=== PATIENT | male | born 1970 | race Caucasian/White ===

== ENCOUNTER 2017-05-17 10:26 | Inpatient (IN) | payer OTHER ==
[~2017-05-17] VITALS: Ht 182.9 cm; Wt 103.9 kg
[2017-05-17 12:14] VITALS: BP 143/91
[2017-05-17] MEDS ORDERED: ACETAMINOPHEN 325 MG TABLET. PO PRN ×2 (13:00→13:45)
[2017-05-17] MEDS ORDERED: IV RINGERS SOLUTION,LACTATED 1,000 ML BAG. IV PRN (13:00)
[2017-05-17] MEDS ORDERED: ACET325T9 PO (13:03)
[2017-05-17] MEDS ORDERED: RING10003 IV (13:03)
[2017-05-17] MEDS ORDERED: ONDA2VIA3 IV (13:12)
[2017-05-17] MEDS ORDERED: PANT40VI IV (13:12)
[2017-05-17] MEDS ORDERED: NITR0.4T22 SL (13:12)
[2017-05-17] MEDS ORDERED: fentaNYL PF VIAL 100 MCG/2 ML VIAL IV PRN (13:15)
[2017-05-17 13:24] VITALS: BP 143/91
[2017-05-17] MEDS ORDERED: NICO2GUM42 BC (13:28)
[2017-05-17] MEDS ORDERED: NICO1PAT21 TD (13:28)
[2017-05-17] MEDS ORDERED: NICOTINE POLACRILEX 2MG GUM PACKAGE of 12. BC PRN (13:30)
[2017-05-17] MEDS ORDERED: oxyCODONE IR 5 MG TABLET PO PRN (13:45)
[2017-05-17] MEDS ORDERED: CALCIUM CARBONATE 500 MG TAB.CHEW PO PRN (13:45)
[2017-05-17] MEDS ORDERED: PROCHLORPERAZINE 10 MG/2 ML VIAL. IV PRN (13:45)
[2017-05-17] MEDS ORDERED: PROCHLORPERAZINE 25 MG SUPP.RECT. PR PRN (13:45)
[2017-05-17] MEDS ORDERED: ZOLPIDEM 5 MG TABLET. PO PRN (13:45)
[2017-05-17] MEDS ORDERED: MAG HYDROX/ALUMINUM HYD/SIMETH 30 ML ORAL.SUSP PO PRN (13:45)
--- NOTE | 2017-05-17 14:00 | PDOC1 ---
History and Physical Date of Admission Date of Admission DATE: 05/17/17 TIME: 13:55 Identification/Chief Complaint Chief Complaint abd pain Problems: Source Source: Caregiver, Chart review, Patient History of Present Illness History of Present Illness 46 y.o male with no cardiac hx, went to [facility] bec of abd pain started 1 week ago, epigastric then concentrated at RUQ area, associated some emesis, no fevers. Went to [facility], initially was thought to be having CP, got GI cocktail etc, CXR neg, CT shows cholelithiasis, Admitted, NOw sleeping, post IV fentanyl etc, FAmily at bedside, aware of plan, PLans of sx lisseth RECoccered alcoholic, still smokes, depression and GERD are other past medical. Otherwise, heart is healthy, NOt on any blood thinners Past Medical History GI: GERD Psych: Depression Past Surgical History Past Surgical History: Other (Left hip sx distant past) Family History Family History: Hypertension Social History Smoke: <1 pack per day ALCOHOL: other (recoeverd alcoholic) Drugs: None Current Medications Current Medications Current Medications Acetaminophen (Tylenol) 650 mg PRN Q6HRS PRN PO headache; Start 05/17/17 at 13: 00 Ringer's Solution (Iv Lactated Ringers) 125 ml CONT PRN IV .; Start 05/17/17 at 13:00 Morphine Sulfate 2 mg PRN Q2HR PRN IV PAIN; Start 05/17/17 at 13:15 Fentanyl Citrate (Fentanyl 2ml Vial) 50 mcg PRN Q2HR PRN IV PAIN; Start at 13:15 Nicotine Polacrilex (Nicorette Gum) 1 each PRN Q1HR PRN BC SMOKING CESSATION; Start 05/17/17 at 13:30 Nicotine (Nicoderm Cq 21mg) 1 patch DAILY TD ; Start 05/17/17 at 14:00 Sodium Chloride 1,000 ml @ 100 mls/hr Q10H IV ; Start 05/17/17 at 14:00 Prochlorperazine Edisylate (Compazine) 10 mg PRN Q6HRS PRN IV NAUSEA/VOMITING; Start 05/17/17 at 13:45 Prochlorperazine (Compazine) 25 mg PRN Q12HR PRN [place] NAUSEA/VOMITING; Start 05/17/17 at 13:45 Al Hydroxide/Mg Hydroxide (Mylanta Plus Xs) 30 ml PRN Q3HRS PRN PO HEARTBURN / GAS; Start 05/17/17 at 13:45 Calcium Carbonate/ Glycine (Tums) 500 mg PRN Q3HRS PRN PO UPSET STOMACH; Start 05/17/17 at 13:45 Zolpidem Tartrate (Ambien) 5 mg PRN QHS PRN PO INSOMNIA, MAY REPEAT IN 1HR; Start 05/17/17 at 13:45 Oxycodone HCl (Roxicodone) 5 mg PRN Q3HRS PRN PO BREAKTHROUGH PAIN; Start 05/17 at 13:45 Acetaminophen (Tylenol) 650 mg PRN Q6HRS PRN PO Headaches, Temp > 101.5F; Start 05/17/17 at 13:45; Stop 05/17/17 at 13:48; Status DC Active Scripts Active Reported Nicotine Gum (Nicotine Polacrilex) 2 Mg Gum 2 Mg BC NICODERM CQ 21mg (Nicotine) 1 Each Patch.td24 1 Patch TD DAILY Protonix Iv (Pantoprazole Sodium) 40 Mg Vial 40 Mg IV DAILYAC Zofran (Ondansetron Hcl) 2 Mg/1 Ml Vial 2 Mg IV NITROGLYCERIN SubLingual (Nitroglycerin) 0.4 Mg Tab.subl 0.4 Mg SL PRN Q5MIN PRN Lactated Ringers (Ringers Solution,Lactated) 1,000 Ml Iv.soln 1,000 Ml IV Tylenol (Acetaminophen) 325 Mg Tablet 650 Mg PO Allergies Allergies: Coded Allergies: No Known Drug Allergies (Unverified , 05/17/17) ROS Review of System sleeping Physical Exam General: Alert, Oriented X3, Cooperative, No acute distress HEENT: PERRLA Lungs: Clear to auscultation, Normal air movement Heart: S1S2, RRR, no thrills, no rubs, no gallops Cardiovascular: S1, S2 Abdomen: Soft, Other (no guarding mild to mod tendereness on exam) Rectal Exam: not examined PELVIC: Nml ext genitalia Extremities: No clubbing, No cyanosis, No edema, Normal pulses, No tenderness/ swelling Skin: No rashes, No breakdown, No significant lesion Neuro: Normal gait, Normal speech, Strength at 5/5 X4 ext, Normal tone, Sensation intact, Cranial nerves 3-12 NL, Reflexes 2+ Psych/Mental Status: Mental status NL, Mood NL Vitals Vitals Vital Signs Date Time Temp Pulse Resp B/P (MAP) Pulse Ox O2 Delivery O2 Flow Rate FiO2 05/17/17 13:24 98.1 62 143/91 (108) 97 98.1 05/17/17 12:14 20 Room Air VTE Prophylaxis Ordered VTE Prophylaxis Devices: Yes VTE Pharmacological Prophylaxi: Yes Assessment/Plan Assessment/Plan 1. SYmptomatic cholelithiasis 2. Recovered alcoholic 3. SMoker 4. GERD, Depression NOS - chronci stable Plan: Admit, liquid diet tonight NPO post MN IVF while nPO pain control GS consult - aware Nicotine prn Dw and RN CAITLYN Vazquez MD May 17, 2017 14:00
[2017-05-17] MEDS: MORPHINE SULFATE 4 MG/ML DISP.SYRIN. IV PRN ×2 (14:06→21:56)
[2017-05-17] MEDS: NICOTINE 21MG PATCH. TD SCH (14:07)
[2017-05-17 15:15] VITALS: BP_SYST 113; BP_SYST 134; BP_DIAS 76; BP_DIAS 91
[2017-05-17] MEDS: IV 1/2 NORMAL SALINE 1,000 ML IV SCH (18:42)
[2017-05-17 19:55] VITALS: BP 143/88
[2017-05-17 23:29] VITALS: BP 114/67
[2017-05-18] VITALS (13 sets, daily range): BP systolic 116–133; BP diastolic 60–85
[2017-05-18] MEDS: IV 1/2 NORMAL SALINE 1,000 ML IV SCH ×3 (06:06→20:00)
[2017-05-18 06:09] LABS: BASO % 0 % (0-3); EOS % 1 % (0-3); HEMATOCRIT 43.9 % (39.0-53.0); HEMOGLOBIN 15.3 g/dL (13.0-17.5); LYMPH # 1.6 x10^3/uL (1.0-4.8); LYMPH % 21 % (24-48); MEAN CORPUSCULAR HEMOGLOBIN 30 pg (25-35); MEAN CORPUSCULAR HGB CONC 35 g/dL (31-37); MEAN CORPUSCULAR VOLUME 86 fL (79-100); MONO % 7 % (0-9); NEUT % 70 % (31-73); PLATELET COUNT 179 x10^3/uL (140-400); RED BLOOD COUNT 5.12 x10^6/uL (4.30-5.70); RED CELL DISTRIBUTION WIDTH 13.8 % (11.5-14.5); WHITE BLOOD COUNT 7.6 x10^3/uL (4.0-11.0)
[2017-05-18 06:24] LABS: INR 1.1 (0.8-1.1); PROTHROMBIN TIME PATIENT 13.4 SEC (11.7-14.0)
[2017-05-18 06:35] LABS: ALBUMIN 3.5 g/dL (3.4-5.0); ALBUMIN/GLOBULIN RATIO 1.1 (1.0-1.7); CREATININE 0.8 mg/dL (0.7-1.3); TOTAL BILIRUBIN 0.8 mg/dL (0.2-1.0); TOTAL PROTEIN 6.7 g/dL (6.4-8.2)
[2017-05-18] MEDS ORDERED: ONDANSETRON PF 4 MG/2 ML VIAL. IV PRN ×2 (07:00→14:00)
[2017-05-18] MEDS ORDERED: fentaNYL PF VIAL 100 MCG/2 ML VIAL IV PRN ×2 (07:00)
[2017-05-18] MEDS ORDERED: HYDROmorphone 2 MG/ML VIAL IV PRN (07:00)
[2017-05-18] MEDS ORDERED: MORPHINE SULFATE 4 MG/ML DISP.SYRIN. IV PRN ×2 (07:00→14:15)
[2017-05-18] MEDS ORDERED: IV RINGERS,LACTATED 1000ML 1,000 ML IV SCH (07:00)
[2017-05-18] MEDS ORDERED: LIDOCAINE 1% PF 2 ML VIAL. ID PRN (07:00)
[2017-05-18] MEDS ORDERED: PROCHLORPERAZINE 10 MG/2 ML VIAL. IV PRN (07:00)
[2017-05-18] MEDS ORDERED: IOHEXOL 300 MG/ML 50 ML VIAL. ONE (07:44)
[2017-05-18] MEDS ORDERED: SURGICEL HEMOSTAT 4X8 EACH. ONE (07:44)
[2017-05-18] MEDS ORDERED: BUPIVACAINE-EPI 0.25%-1:200000 MPF 30 ML VIAL. ONE (07:45)
[2017-05-18] MEDS: NICOTINE 21MG PATCH. TD SCH (09:26)
--- NOTE | 2017-05-18 11:40 | PDOC2 ---
CONSULT Date of Consult Date of Consult DATE: 05/18/17 TIME: 11:37 Reason for Consult Reason for Consult: Abd pain with gallstones Referring Physician Referring Physician: Nubia Identification/Chief Complaint Chief Complaint Chest pain Problems: Source Source: Patient History of Present Illness Reason for Visit: 46 yo male was admitted to [facility] with chest pain and pain after eating. Cardiac workup negative. Imaging showed gallstones and he continues to have abdominal pain with nausea after eating. Past Medical History GI: GERD Psych: Depression Past Surgical History Past Surgical History: Other (Left hip sx distant past) Family History Family History: Hypertension Social History <1 pack per day ALCOHOL: other (recoeverd alcoholic) Drugs: None Current Medications Current Medications Current Medications Acetaminophen (Tylenol) 650 mg PRN Q6HRS PRN PO headache; Start 05/17/17 at 13: 00 Ringer's Solution (Iv Lactated Ringers) 125 ml CONT PRN IV .; Start 05/17/17 at 13:00 Morphine Sulfate 2 mg PRN Q2HR PRN IV PAIN Last administered on 05/17/17 21:56 ; Start 05/17/17 at 13:15 Fentanyl Citrate (Fentanyl 2ml Vial) 50 mcg PRN Q2HR PRN IV PAIN; Start at 13:15 Nicotine Polacrilex (Nicorette Gum) 1 each PRN Q1HR PRN BC SMOKING CESSATION Last administered on 05/17/17 17:02; Start 05/17/17 at 13:30 Nicotine (Nicoderm Cq 21mg) 1 patch DAILY TD Last administered on 05/18/17 09: 26; Start 05/17/17 at 14:00 Sodium Chloride 1,000 ml @ 100 mls/hr Q10H IV Last administered on 05/18/17 06:06; Start 05/17/17 at 14:00 Prochlorperazine Edisylate (Compazine) 10 mg PRN Q6HRS PRN IV NAUSEA/VOMITING; Start 05/17/17 at 13:45 Prochlorperazine (Compazine) 25 mg PRN Q12HR PRN [place] NAUSEA/VOMITING; Start 05/17/17 at 13:45 Al Hydroxide/Mg Hydroxide (Mylanta Plus Xs) 30 ml PRN Q3HRS PRN PO HEARTBURN / GAS; Start 05/17/17 at 13:45 Calcium Carbonate/ Glycine (Tums) 500 mg PRN Q3HRS PRN PO UPSET STOMACH; Start 05/17/17 at 13:45 Zolpidem Tartrate (Ambien) 5 mg PRN QHS PRN PO INSOMNIA, MAY REPEAT IN 1HR; Start 05/17/17 at 13:45 Oxycodone HCl (Roxicodone) 5 mg PRN Q3HRS PRN PO BREAKTHROUGH PAIN; Start 05/17 at 13:45 Acetaminophen (Tylenol) 650 mg PRN Q6HRS PRN PO Headaches, Temp > 101.5F; Start 05/17/17 at 13:45; Stop 05/17/17 at 13:48; Status DC Ondansetron HCl (Zofran) 4 mg PRN Q6HRS PRN IV NAUSEA/VOMITING; Start 05/18/17 at 07:00; Stop 05/18/17 at 23:00 Fentanyl Citrate (Fentanyl 2ml Vial) 25 mcg PRN Q5MIN PRN IV MILD PAIN; Start 05/18/17 at 07:00; Stop 05/18/17 at 23:00 Fentanyl Citrate (Fentanyl 2ml Vial) 50 mcg PRN Q5MIN PRN IV MODERATE PAIN; Start 05/18/17 at 07:00; Stop 05/18/17 at 23:00 Morphine Sulfate 1 mg PRN Q10MIN PRN IV SEVERE PAIN; Start 05/18/17 at 07:00; Stop 05/18/17 at 23:00 Ringer's Solution 1,000 ml @ 30 mls/hr Q24H IV ; Start 05/18/17 at 07:00; Stop 05/18/17 at 18:59 Lidocaine HCl (Xylocaine-Mpf 1% Vial) 2 ml PRN 1X PRN ID IV START; Start at 07:00; Stop 05/18/17 at 23:00 Hydromorphone HCl (Dilaudid) 0.5 mg PRN Q10MIN PRN IV SEV PAIN, Second choice; Start 05/18/17 at 07:00; Stop 05/18/17 at 23:00 Prochlorperazine Edisylate (Compazine) 5 mg PACU PRN PRN IV NAUSEA, MRX1; Start 05/18/17 at 07:00; Stop 05/18/17 at 23:00 Iohexol (Omnipaque 300 Mg/ml) 50 ml STK-MED ONCE .ROUTE ; Start 05/18/17 at 07: 44; Stop 05/18/17 at 08:44; Status DC Cellulose 1 each STK-MED ONCE .ROUTE ; Start 05/18/17 at 07:44; Stop 05/18/17 at 08:45; Status DC Bupivacaine HCl/ Epinephrine Bitart (Sensorcaine-Epi 0.25%-1:411134 Mpf) 30 ml STK-MED ONCE .ROUTE ; Start 05/18/17 at 07:45; Stop 05/18/17 at 08:45; Status DC Active Scripts Active Reported Nicotine Gum (Nicotine Polacrilex) 2 Mg Gum 2 Mg BC NICODERM CQ 21mg (Nicotine) 1 Each Patch.td24 1 Patch TD DAILY Protonix Iv (Pantoprazole Sodium) 40 Mg Vial 40 Mg IV DAILYAC Zofran (Ondansetron Hcl) 2 Mg/1 Ml Vial 2 Mg IV NITROGLYCERIN SubLingual (Nitroglycerin) 0.4 Mg Tab.subl 0.4 Mg SL PRN Q5MIN PRN Lactated Ringers (Ringers Solution,Lactated) 1,000 Ml Iv.soln 1,000 Ml IV Tylenol (Acetaminophen) 325 Mg Tablet 650 Mg PO Allergies Allergies: Coded Allergies: No Known Drug Allergies (Unverified , 05/17/17) Vitals VITALS Vital Signs Date Time Temp Pulse Resp B/P (MAP) Pulse Ox O2 Delivery O2 Flow Rate FiO2 05/18/17 11:00 98.2 67 18 133/85 (101) 97 Room Air 98.2 Labs Labs Laboratory Tests Test 05/18/17 04:50 White Blood Count 7.6 x10^3/uL (4.0-11.0) Red Blood Count 5.12 x10^6/uL (4.30-5.70) Hemoglobin 15.3 g/dL (13.0-17.5) Hematocrit 43.9 % (39.0-53.0) Mean Corpuscular Volume 86 fL (79-100) Mean Corpuscular Hemoglobin 30 pg (25-35) Mean Corpuscular Hemoglobin Concent 35 g/dL (31-37) Red Cell Distribution Width 13.8 % (11.5-14.5) Platelet Count 179 x10^3/uL (140-400) Neutrophils (%) (Auto) 70 % (31-73) Lymphocytes (%) (Auto) 21 % (24-48) Monocytes (%) (Auto) 7 % (0-9) Eosinophils (%) (Auto) 1 % (0-3) Basophils (%) (Auto) 0 % (0-3) Neutrophils # (Auto) 5.3 x10^3uL (1.8-7.7) Lymphocytes # (Auto) 1.6 x10^3/uL (1.0-4.8) Monocytes # (Auto) 0.6 x10^3/uL (0.0-1.1) Eosinophils # (Auto) 0.1 x10^3/uL (0.0-0.7) Basophils # (Auto) 0.0 x10^3/uL (0.0-0.2) Prothrombin Time 13.4 SEC (11.7-14.0) Prothromb Time International Ratio 1.1 (0.8-1.1) Sodium Level 141 mmol/L (136-145) Potassium Level 4.0 mmol/L (3.5-5.1) Chloride Level 104 mmol/L (98-107) Carbon Dioxide Level 31 mmol/L (21-32) Anion Gap 6 (6-14) Blood Urea Nitrogen 6 mg/dL (8-26) Creatinine 0.8 mg/dL (0.7-1.3) Estimated GFR (Cockcroft-Gault) 105.0 BUN/Creatinine Ratio 8 (6-20) Glucose Level 107 mg/dL (70-99) Calcium Level 9.0 mg/dL (8.5-10.1) Total Bilirubin 0.8 mg/dL (0.2-1.0) Aspartate Amino Transf (AST/SGOT) 47 U/L (15-37) Alanine Aminotransferase (ALT/SGPT) 79 U/L (16-63) Alkaline Phosphatase 79 U/L (46-116) Total Protein 6.7 g/dL (6.4-8.2) Albumin 3.5 g/dL (3.4-5.0) Albumin/Globulin Ratio 1.1 (1.0-1.7) Laboratory Tests Test 05/18/17 04:50 White Blood Count 7.6 x10^3/uL (4.0-11.0) Red Blood Count 5.12 x10^6/uL (4.30-5.70) Hemoglobin 15.3 g/dL (13.0-17.5) Hematocrit 43.9 % (39.0-53.0) Mean Corpuscular Volume 86 fL (79-100) Mean Corpuscular Hemoglobin 30 pg (25-35) Mean Corpuscular Hemoglobin Concent 35 g/dL (31-37) Red Cell Distribution Width 13.8 % (11.5-14.5) Platelet Count 179 x10^3/uL (140-400) Neutrophils (%) (Auto) 70 % (31-73) Lymphocytes (%) (Auto) 21 % (24-48) Monocytes (%) (Auto) 7 % (0-9) Eosinophils (%) (Auto) 1 % (0-3) Basophils (%) (Auto) 0 % (0-3) Neutrophils # (Auto) 5.3 x10^3uL (1.8-7.7) Lymphocytes # (Auto) 1.6 x10^3/uL (1.0-4.8) Monocytes # (Auto) 0.6 x10^3/uL (0.0-1.1) Eosinophils # (Auto) 0.1 x10^3/uL (0.0-0.7) Basophils # (Auto) 0.0 x10^3/uL (0.0-0.2) Prothrombin Time 13.4 SEC (11.7-14.0) Prothromb Time International Ratio 1.1 (0.8-1.1) Sodium Level 141 mmol/L (136-145) Potassium Level 4.0 mmol/L (3.5-5.1) Chloride Level 104 mmol/L (98-107) Carbon Dioxide Level 31 mmol/L (21-32) Anion Gap 6 (6-14) Blood Urea Nitrogen 6 mg/dL (8-26) Creatinine 0.8 mg/dL (0.7-1.3) Estimated GFR (Cockcroft-Gault) 105.0 BUN/Creatinine Ratio 8 (6-20) Glucose Level 107 mg/dL (70-99) Calcium Level 9.0 mg/dL (8.5-10.1) Total Bilirubin 0.8 mg/dL (0.2-1.0) Aspartate Amino Transf (AST/SGOT) 47 U/L (15-37) Alanine Aminotransferase (ALT/SGPT) 79 U/L (16-63) Alkaline Phosphatase 79 U/L (46-116) Total Protein 6.7 g/dL (6.4-8.2) Albumin 3.5 g/dL (3.4-5.0) Albumin/Globulin Ratio 1.1 (1.0-1.7) Images Images in HPI Assessment/Plan Assessment/Plan Symptomatic cholelithiasis Plan L/S Cholecystectomy today ELENI SHIELDS MD May 18, 2017 11:40
[2017-05-18] MEDS ORDERED: traMADol 50 MG TABLET PO PRN (14:00)
[2017-05-18] MEDS ORDERED: ACETAMINOPHEN 325 MG TABLET. PO PRN (14:00)
[2017-05-18] MEDS ORDERED: hydrALAZINE 20 MG/ML VIAL. IVP PRN (14:00)
[2017-05-18] MEDS ORDERED: DOCUSATE SODIUM 100 MG CAPSULE. PO PRN (14:00)
--- NOTE | 2017-05-18 14:00 | PDOC ---
PROGRESS NOTES Chief Complaint Chief Complaint 1. SYmptomatic cholelithiasis 2. Recovered alcoholic 3. SMoker 4. GERD, Depression NOS plan: fu with sx, plan to do lap caron today npo ivf pain control gi ppx labs tmr History of Present Illness History of Present Illness ROS: no fever, chills, sob, or chest pain abd pain better with pain meds Vitals Vitals Vital Signs Date Time Temp Pulse Resp B/P (MAP) Pulse Ox O2 Delivery O2 Flow Rate FiO2 05/18/17 11:00 98.2 67 18 133/85 (101) 97 Room Air 98.2 Physical Exam General: Alert, Oriented X3, Cooperative, No acute distress Heart: Regular rate, Normal S1, Normal S2 Lungs: Clear Abdomen: Normal bowel sounds, Soft, Other (no guarding mild to mod tendereness RUQ) Extremities: No clubbing, No cyanosis, No edema, Normal pulses, No tenderness/ swelling Skin: No rashes, No breakdown, No significant lesion Labs LABS Laboratory Tests Test 05/18/17 04:50 White Blood Count 7.6 x10^3/uL (4.0-11.0) Red Blood Count 5.12 x10^6/uL (4.30-5.70) Hemoglobin 15.3 g/dL (13.0-17.5) Hematocrit 43.9 % (39.0-53.0) Mean Corpuscular Volume 86 fL (79-100) Mean Corpuscular Hemoglobin 30 pg (25-35) Mean Corpuscular Hemoglobin Concent 35 g/dL (31-37) Red Cell Distribution Width 13.8 % (11.5-14.5) Platelet Count 179 x10^3/uL (140-400) Neutrophils (%) (Auto) 70 % (31-73) Lymphocytes (%) (Auto) 21 % (24-48) Monocytes (%) (Auto) 7 % (0-9) Eosinophils (%) (Auto) 1 % (0-3) Basophils (%) (Auto) 0 % (0-3) Neutrophils # (Auto) 5.3 x10^3uL (1.8-7.7) Lymphocytes # (Auto) 1.6 x10^3/uL (1.0-4.8) Monocytes # (Auto) 0.6 x10^3/uL (0.0-1.1) Eosinophils # (Auto) 0.1 x10^3/uL (0.0-0.7) Basophils # (Auto) 0.0 x10^3/uL (0.0-0.2) Prothrombin Time 13.4 SEC (11.7-14.0) Prothromb Time International Ratio 1.1 (0.8-1.1) Sodium Level 141 mmol/L (136-145) Potassium Level 4.0 mmol/L (3.5-5.1) Chloride Level 104 mmol/L (98-107) Carbon Dioxide Level 31 mmol/L (21-32) Anion Gap 6 (6-14) Blood Urea Nitrogen 6 mg/dL (8-26) Creatinine 0.8 mg/dL (0.7-1.3) Estimated GFR (Cockcroft-Gault) 105.0 BUN/Creatinine Ratio 8 (6-20) Glucose Level 107 mg/dL (70-99) Calcium Level 9.0 mg/dL (8.5-10.1) Total Bilirubin 0.8 mg/dL (0.2-1.0) Aspartate Amino Transf (AST/SGOT) 47 U/L (15-37) Alanine Aminotransferase (ALT/SGPT) 79 U/L (16-63) Alkaline Phosphatase 79 U/L (46-116) Total Protein 6.7 g/dL (6.4-8.2) Albumin 3.5 g/dL (3.4-5.0) Albumin/Globulin Ratio 1.1 (1.0-1.7) Comment Review of Relevant I have reviewed the following items antonella (where applicable) has been applied. Labs Laboratory Tests Test 05/18/17 04:50 White Blood Count 7.6 x10^3/uL (4.0-11.0) Red Blood Count 5.12 x10^6/uL (4.30-5.70) Hemoglobin 15.3 g/dL (13.0-17.5) Hematocrit 43.9 % (39.0-53.0) Mean Corpuscular Volume 86 fL (79-100) Mean Corpuscular Hemoglobin 30 pg (25-35) Mean Corpuscular Hemoglobin Concent 35 g/dL (31-37) Red Cell Distribution Width 13.8 % (11.5-14.5) Platelet Count 179 x10^3/uL (140-400) Neutrophils (%) (Auto) 70 % (31-73) Lymphocytes (%) (Auto) 21 % (24-48) Monocytes (%) (Auto) 7 % (0-9) Eosinophils (%) (Auto) 1 % (0-3) Basophils (%) (Auto) 0 % (0-3) Neutrophils # (Auto) 5.3 x10^3uL (1.8-7.7) Lymphocytes # (Auto) 1.6 x10^3/uL (1.0-4.8) Monocytes # (Auto) 0.6 x10^3/uL (0.0-1.1) Eosinophils # (Auto) 0.1 x10^3/uL (0.0-0.7) Basophils # (Auto) 0.0 x10^3/uL (0.0-0.2) Prothrombin Time 13.4 SEC (11.7-14.0) Prothromb Time International Ratio 1.1 (0.8-1.1) Sodium Level 141 mmol/L (136-145) Potassium Level 4.0 mmol/L (3.5-5.1) Chloride Level 104 mmol/L (98-107) Carbon Dioxide Level 31 mmol/L (21-32) Anion Gap 6 (6-14) Blood Urea Nitrogen 6 mg/dL (8-26) Creatinine 0.8 mg/dL (0.7-1.3) Estimated GFR (Cockcroft-Gault) 105.0 BUN/Creatinine Ratio 8 (6-20) Glucose Level 107 mg/dL (70-99) Calcium Level 9.0 mg/dL (8.5-10.1) Total Bilirubin 0.8 mg/dL (0.2-1.0) Aspartate Amino Transf (AST/SGOT) 47 U/L (15-37) Alanine Aminotransferase (ALT/SGPT) 79 U/L (16-63) Alkaline Phosphatase 79 U/L (46-116) Total Protein 6.7 g/dL (6.4-8.2) Albumin 3.5 g/dL (3.4-5.0) Albumin/Globulin Ratio 1.1 (1.0-1.7) Laboratory Tests Test 05/18/17 04:50 White Blood Count 7.6 x10^3/uL (4.0-11.0) Red Blood Count 5.12 x10^6/uL (4.30-5.70) Hemoglobin 15.3 g/dL (13.0-17.5) Hematocrit 43.9 % (39.0-53.0) Mean Corpuscular Volume 86 fL (79-100) Mean Corpuscular Hemoglobin 30 pg (25-35) Mean Corpuscular Hemoglobin Concent 35 g/dL (31-37) Red Cell Distribution Width 13.8 % (11.5-14.5) Platelet Count 179 x10^3/uL (140-400) Neutrophils (%) (Auto) 70 % (31-73) Lymphocytes (%) (Auto) 21 % (24-48) Monocytes (%) (Auto) 7 % (0-9) Eosinophils (%) (Auto) 1 % (0-3) Basophils (%) (Auto) 0 % (0-3) Neutrophils # (Auto) 5.3 x10^3uL (1.8-7.7) Lymphocytes # (Auto) 1.6 x10^3/uL (1.0-4.8) Monocytes # (Auto) 0.6 x10^3/uL (0.0-1.1) Eosinophils # (Auto) 0.1 x10^3/uL (0.0-0.7) Basophils # (Auto) 0.0 x10^3/uL (0.0-0.2) Prothrombin Time 13.4 SEC (11.7-14.0) Prothromb Time International Ratio 1.1 (0.8-1.1) Sodium Level 141 mmol/L (136-145) Potassium Level 4.0 mmol/L (3.5-5.1) Chloride Level 104 mmol/L (98-107) Carbon Dioxide Level 31 mmol/L (21-32) Anion Gap 6 (6-14) Blood Urea Nitrogen 6 mg/dL (8-26) Creatinine 0.8 mg/dL (0.7-1.3) Estimated GFR (Cockcroft-Gault) 105.0 BUN/Creatinine Ratio 8 (6-20) Glucose Level 107 mg/dL (70-99) Calcium Level 9.0 mg/dL (8.5-10.1) Total Bilirubin 0.8 mg/dL (0.2-1.0) Aspartate Amino Transf (AST/SGOT) 47 U/L (15-37) Alanine Aminotransferase (ALT/SGPT) 79 U/L (16-63) Alkaline Phosphatase 79 U/L (46-116) Total Protein 6.7 g/dL (6.4-8.2) Albumin 3.5 g/dL (3.4-5.0) Albumin/Globulin Ratio 1.1 (1.0-1.7) Medications Current Medications Acetaminophen (Tylenol) 650 mg PRN Q6HRS PRN PO headache; Start 05/17/17 at 13: 00 Ringer's Solution (Iv Lactated Ringers) 125 ml CONT PRN IV .; Start 05/17/17 at 13:00 Morphine Sulfate 2 mg PRN Q2HR PRN IV PAIN Last administered on 05/17/17 21:56 ; Start 05/17/17 at 13:15 Fentanyl Citrate (Fentanyl 2ml Vial) 50 mcg PRN Q2HR PRN IV PAIN; Start at 13:15 Nicotine Polacrilex (Nicorette Gum) 1 each PRN Q1HR PRN BC SMOKING CESSATION Last administered on 05/17/17 17:02; Start 05/17/17 at 13:30 Nicotine (Nicoderm Cq 21mg) 1 patch DAILY TD Last administered on 05/18/17 09: 26; Start 05/17/17 at 14:00 Sodium Chloride 1,000 ml @ 100 mls/hr Q10H IV Last administered on 05/18/17 06:06; Start 05/17/17 at 14:00 Prochlorperazine Edisylate (Compazine) 10 mg PRN Q6HRS PRN IV NAUSEA/VOMITING; Start 05/17/17 at 13:45 Prochlorperazine (Compazine) 25 mg PRN Q12HR PRN [place] NAUSEA/VOMITING; Start 05/17/17 at 13:45 Al Hydroxide/Mg Hydroxide (Mylanta Plus Xs) 30 ml PRN Q3HRS PRN PO HEARTBURN / GAS; Start 05/17/17 at 13:45 Calcium Carbonate/ Glycine (Tums) 500 mg PRN Q3HRS PRN PO UPSET STOMACH; Start 05/17/17 at 13:45 Zolpidem Tartrate (Ambien) 5 mg PRN QHS PRN PO INSOMNIA, MAY REPEAT IN 1HR; Start 05/17/17 at 13:45 Oxycodone HCl (Roxicodone) 5 mg PRN Q3HRS PRN PO BREAKTHROUGH PAIN; Start 05/17 at 13:45 Acetaminophen (Tylenol) 650 mg PRN Q6HRS PRN PO Headaches, Temp > 101.5F; Start 05/17/17 at 13:45; Stop 05/17/17 at 13:48; Status DC Ondansetron HCl (Zofran) 4 mg PRN Q6HRS PRN IV NAUSEA/VOMITING; Start 05/18/17 at 07:00; Stop 05/18/17 at 23:00 Fentanyl Citrate (Fentanyl 2ml Vial) 25 mcg PRN Q5MIN PRN IV MILD PAIN; Start 05/18/17 at 07:00; Stop 05/18/17 at 23:00 Fentanyl Citrate (Fentanyl 2ml Vial) 50 mcg PRN Q5MIN PRN IV MODERATE PAIN; Start 05/18/17 at 07:00; Stop 05/18/17 at 23:00 Morphine Sulfate 1 mg PRN Q10MIN PRN IV SEVERE PAIN; Start 05/18/17 at 07:00; Stop 05/18/17 at 23:00 Ringer's Solution 1,000 ml @ 30 mls/hr Q24H IV ; Start 05/18/17 at 07:00; Stop 05/18/17 at 18:59 Lidocaine HCl (Xylocaine-Mpf 1% Vial) 2 ml PRN 1X PRN ID IV START; Start at 07:00; Stop 05/18/17 at 23:00 Hydromorphone HCl (Dilaudid) 0.5 mg PRN Q10MIN PRN IV SEV PAIN, Second choice; Start 05/18/17 at 07:00; Stop 05/18/17 at 23:00 Prochlorperazine Edisylate (Compazine) 5 mg PACU PRN PRN IV NAUSEA, MRX1; Start 05/18/17 at 07:00; Stop 05/18/17 at 23:00 Iohexol (Omnipaque 300 Mg/ml) 50 ml STK-MED ONCE .ROUTE ; Start 05/18/17 at 07: 44; Stop 05/18/17 at 08:44; Status DC Cellulose 1 each STK-MED ONCE .ROUTE ; Start 05/18/17 at 07:44; Stop 05/18/17 at 08:45; Status DC Bupivacaine HCl/ Epinephrine Bitart (Sensorcaine-Epi 0.25%-1:147530 Mpf) 30 ml STK-MED ONCE .ROUTE ; Start 05/18/17 at 07:45; Stop 05/18/17 at 08:45; Status DC Active Scripts Active Reported Nicotine Gum (Nicotine Polacrilex) 2 Mg Gum 2 Mg BC NICODERM CQ 21mg (Nicotine) 1 Each Patch.td24 1 Patch TD DAILY Protonix Iv (Pantoprazole Sodium) 40 Mg Vial 40 Mg IV DAILYAC Zofran (Ondansetron Hcl) 2 Mg/1 Ml Vial 2 Mg IV NITROGLYCERIN SubLingual (Nitroglycerin) 0.4 Mg Tab.subl 0.4 Mg SL PRN Q5MIN PRN Lactated Ringers (Ringers Solution,Lactated) 1,000 Ml Iv.soln 1,000 Ml IV Tylenol (Acetaminophen) 325 Mg Tablet 650 Mg PO Vitals/I & O Vital Sign - Last 24 Hours 05/17/17 05/17/17 05/17/17 05/17/17 14:06 14:30 15:15 17:20 Temp 98.1 98.1 Pulse 67 Resp 18 B/P (MAP) 134/91 (105) Pulse Ox 97 96 96 O2 Delivery Room Air Room Air 05/17/17 05/17/17 05/17/17 05/17/17 19:50 19:55 21:56 22:26 Temp 98.8 98.8 Pulse 68 Resp 18 20 20 B/P (MAP) 143/88 (106) Pulse Ox 95 O2 Delivery Room Air Room Air Room Air Room Air 05/17/17 05/18/17 05/18/17 05/18/17 23:29 03:34 07:15 11:00 Temp 98.8 98.7 98.1 98.2 98.8 98.7 98.1 98.2 Pulse 78 81 77 67 Resp 18 18 20 18 B/P (MAP) 114/67 (83) 116/60 (78) 119/64 (82) 133/85 (101) Pulse Ox 94 96 97 97 O2 Delivery Room Air Room Air Room Air Room Air ALAN LANE MD May 18, 2017 14:00
[2017-05-18] MEDS ORDERED: LIDOCAINE 1% PF 5 ML VIAL. ONE (14:54)
[2017-05-18] MEDS ORDERED: PROPOFOL 20 ML IV ONE (14:54)
[2017-05-18] MEDS ORDERED: GLYCOPYRROLATE 1 MG/5 ML VIAL. ONE ×2 (14:57→15:43)
[2017-05-18] MEDS ORDERED: ROCURONIUM 100 MG/10 ML VIAL. ONE (14:57)
[2017-05-18] MEDS ORDERED: fentaNYL PF VIAL 100 MCG/2 ML VIAL ONE (15:11)
[2017-05-18] MEDS ORDERED: SUCCINYLCHOLINE 200 MG/10 ML VIAL. ONE (15:13)
[2017-05-18] MEDS ORDERED: DEXAMETHASONE SOD PHOS 20 MG/5 ML VIAL. ONE (15:35)
[2017-05-18] MEDS ORDERED: DESFLURANE 31 TO 60 MINUTES IH ONE (15:35)
[2017-05-18] MEDS ORDERED: ONDANSETRON PF 4 MG/2 ML VIAL. ONE (15:43)
[2017-05-18] MEDS ORDERED: NEOSTIGMINE 10 MG/10 ML VIAL. ONE (15:43)
--- NOTE | 2017-05-18 16:17 | PDOC4 ---
Operative Note Operative Note Date: 05/18/2017 Preoperative diagnosis: Cholecystitis Postoperative diagnosis: Same Procedure: Laparoscopic cholecystectomy Surgeon: Je Specimen: Gallbladder Dictation: Patient is a 46-year-old male who was matted to the hospital with right upper quadrant abdominal pain and postprandial nausea and vomiting. CT scan showed thickened gallbladder wall. Procedure of laparoscopic cholecystectomy was explained to the patient in detail was benefits were also discussed including bleeding infection injury to intra-abdominal contents possibly necessitating further or open operations alternatives to this procedure also discussed with the patient. The patient seemed understanding gave both verbal and written consent to have seated performed. Patient was taken to the operating room placed in supine position general anesthesia was initiated once patient was asleep and intubated his abdomen was prepped and draped in usual sterile fashion using ChloraPrep. An area just below the umbilicus injected with quarter percent Marcaine with epinephrine incision was made 11 blade scalpel and a varies needle was placed within the abdomen creating a pneumoperitoneum. Once this was complete a 11 mm port was placed at the umbilical incision and 5 mm ports were placed one in the epigastrium 2 in the right upper quadrant under direct visualization. Dome of the gallbladder was grasped retracted cephalad the infundibulum of the gallbladder was grasped retracted laterally exposing the triangle clothe adherent tissues of the triangle are taken down exposing the cystic duct and cystic artery both were doubly clipped and transected the gallbladder was taken off the liver with hook left cautery placed in Endo Catch bag and removed from the umbilicus the right upper quadrant was irrigated and suctioned dry hemostasis deemed to be appropriate and the pneumoperitoneum was reduced all ports were removed. The fascial defect at the umbilicus was closed with a [id number] 0 Vicryl suture. Skin was reapproximated all port sites 4 subcuticular Monocryl Mastisol Steri-Strips and island dressings were applied. The patient was awakened and Gated in the operating room taken to recovery in stable condition all sponge instrument and needle counts listed as correct estimated blood loss 20 mL. ELENI SHIELDS MD May 18, 2017 16:17
[2017-05-18] MEDS ORDERED: oxyCODONE/APAP 5/325 1 TAB TABLET PO PRN ×2 (16:30)
[2017-05-19 03:00] VITALS: BP 110/59
[2017-05-19 04:37] LABS: BASO % 0 % (0-3); EOS % 0 % (0-3); HEMATOCRIT 41.6 % (39.0-53.0); HEMOGLOBIN 14.2 g/dL (13.0-17.5); LYMPH # 1.4 x10^3/uL (1.0-4.8); LYMPH % 14 % (24-48); MEAN CORPUSCULAR HEMOGLOBIN 30 pg (25-35); MEAN CORPUSCULAR HGB CONC 34 g/dL (31-37); MEAN CORPUSCULAR VOLUME 87 fL (79-100); MONO % 6 % (0-9); NEUT % 80 % (31-73); PLATELET COUNT 181 x10^3/uL (140-400); RED BLOOD COUNT 4.77 x10^6/uL (4.30-5.70); RED CELL DISTRIBUTION WIDTH 13.4 % (11.5-14.5); WHITE BLOOD COUNT 10.1 x10^3/uL (4.0-11.0)
[2017-05-19 05:03] LABS: ALBUMIN 3.4 g/dL (3.4-5.0); CALCIUM 9.2 mg/dL (8.5-10.1); CREATININE 0.8 mg/dL (0.7-1.3); DIRECT BILIRUBIN 0.2 mg/dL (0.0-0.2); POTASSIUM 3.7 mmol/L (3.5-5.1); TOTAL BILIRUBIN 0.6 mg/dL (0.2-1.0); TOTAL PROTEIN 6.9 g/dL (6.4-8.2)
[2017-05-19] MEDS: IV 1/2 NORMAL SALINE 1,000 ML IV SCH (06:00)
[2017-05-19 07:00] VITALS: BP 131/90
--- NOTE | 2017-05-19 09:24 | PDOC ---
JUAREZ GAN [employer] AG[employer] 05/19/17 0924: SURGICAL PROGRESS NOTE Subjective tolerating diet pain managed ambulating urinating Vital Signs Vital Signs Date Time Temp Pulse Resp B/P (MAP) Pulse Ox O2 Delivery O2 Flow Rate FiO2 05/19/17 07:00 98.8 90 20 131/90 (104) 95 Room Air 98.8 05/18/17 16:20 10 General: Alert, Oriented X3, Cooperative, No acute distress Abdomen: Soft, Other (lap dressings dry, incisional TTP) Labs Laboratory Tests Test 05/18/17 04:50 05/19/17 03:47 White Blood Count 7.6 x10^3/uL (4.0-11.0) 10.1 x10^3/uL (4.0-11.0) Red Blood Count 5.12 x10^6/uL (4.30-5.70) 4.77 x10^6/uL (4.30-5.70) Hemoglobin 15.3 g/dL (13.0-17.5) 14.2 g/dL (13.0-17.5) Hematocrit 43.9 % (39.0-53.0) 41.6 % (39.0-53.0) Mean Corpuscular Volume 86 fL (79-100) 87 fL (79-100) Mean Corpuscular Hemoglobin 30 pg (25-35) 30 pg (25-35) Mean Corpuscular Hemoglobin Concent 35 g/dL (31-37) 34 g/dL (31-37) Red Cell Distribution Width 13.8 % (11.5-14.5) 13.4 % (11.5-14.5) Platelet Count 179 x10^3/uL (140-400) 181 x10^3/uL (140-400) Neutrophils (%) (Auto) 70 % (31-73) 80 % (31-73) Lymphocytes (%) (Auto) 21 % (24-48) 14 % (24-48) Monocytes (%) (Auto) 7 % (0-9) 6 % (0-9) Eosinophils (%) (Auto) 1 % (0-3) 0 % (0-3) Basophils (%) (Auto) 0 % (0-3) 0 % (0-3) Neutrophils # (Auto) 5.3 x10^3uL (1.8-7.7) 8.0 x10^3uL (1.8-7.7) Lymphocytes # (Auto) 1.6 x10^3/uL (1.0-4.8) 1.4 x10^3/uL (1.0-4.8) Monocytes # (Auto) 0.6 x10^3/uL (0.0-1.1) 0.6 x10^3/uL (0.0-1.1) Eosinophils # (Auto) 0.1 x10^3/uL (0.0-0.7) 0.0 x10^3/uL (0.0-0.7) Basophils # (Auto) 0.0 x10^3/uL (0.0-0.2) 0.0 x10^3/uL (0.0-0.2) Prothrombin Time 13.4 SEC (11.7-14.0) Prothromb Time International Ratio 1.1 (0.8-1.1) Sodium Level 141 mmol/L (136-145) 137 mmol/L (136-145) Potassium Level 4.0 mmol/L (3.5-5.1) 3.7 mmol/L (3.5-5.1) Chloride Level 104 mmol/L (98-107) 102 mmol/L (98-107) Carbon Dioxide Level 31 mmol/L (21-32) 29 mmol/L (21-32) Anion Gap 6 (6-14) 6 (6-14) Blood Urea Nitrogen 6 mg/dL (8-26) 11 mg/dL (8-26) Creatinine 0.8 mg/dL (0.7-1.3) 0.8 mg/dL (0.7-1.3) Estimated GFR (Cockcroft-Gault) 105.0 105.0 BUN/Creatinine Ratio 8 (6-20) Glucose Level 107 mg/dL (70-99) 119 mg/dL (70-99) Calcium Level 9.0 mg/dL (8.5-10.1) 9.2 mg/dL (8.5-10.1) Total Bilirubin 0.8 mg/dL (0.2-1.0) 0.6 mg/dL (0.2-1.0) Aspartate Amino Transf (AST/SGOT) 47 U/L (15-37) 43 U/L (15-37) Alanine Aminotransferase (ALT/SGPT) 79 U/L (16-63) 81 U/L (16-63) Alkaline Phosphatase 79 U/L (46-116) 74 U/L (46-116) Total Protein 6.7 g/dL (6.4-8.2) 6.9 g/dL (6.4-8.2) Albumin 3.5 g/dL (3.4-5.0) 3.4 g/dL (3.4-5.0) Albumin/Globulin Ratio 1.1 (1.0-1.7) Direct Bilirubin 0.2 mg/dL (0.0-0.2) Laboratory Tests Test 05/19/17 03:47 White Blood Count 10.1 x10^3/uL (4.0-11.0) Red Blood Count 4.77 x10^6/uL (4.30-5.70) Hemoglobin 14.2 g/dL (13.0-17.5) Hematocrit 41.6 % (39.0-53.0) Mean Corpuscular Volume 87 fL (79-100) Mean Corpuscular Hemoglobin 30 pg (25-35) Mean Corpuscular Hemoglobin Concent 34 g/dL (31-37) Red Cell Distribution Width 13.4 % (11.5-14.5) Platelet Count 181 x10^3/uL (140-400) Neutrophils (%) (Auto) 80 % (31-73) Lymphocytes (%) (Auto) 14 % (24-48) Monocytes (%) (Auto) 6 % (0-9) Eosinophils (%) (Auto) 0 % (0-3) Basophils (%) (Auto) 0 % (0-3) Neutrophils # (Auto) 8.0 x10^3uL (1.8-7.7) Lymphocytes # (Auto) 1.4 x10^3/uL (1.0-4.8) Monocytes # (Auto) 0.6 x10^3/uL (0.0-1.1) Eosinophils # (Auto) 0.0 x10^3/uL (0.0-0.7) Basophils # (Auto) 0.0 x10^3/uL (0.0-0.2) Sodium Level 137 mmol/L (136-145) Potassium Level 3.7 mmol/L (3.5-5.1) Chloride Level 102 mmol/L (98-107) Carbon Dioxide Level 29 mmol/L (21-32) Anion Gap 6 (6-14) Blood Urea Nitrogen 11 mg/dL (8-26) Creatinine 0.8 mg/dL (0.7-1.3) Estimated GFR (Cockcroft-Gault) 105.0 Glucose Level 119 mg/dL (70-99) Calcium Level 9.2 mg/dL (8.5-10.1) Total Bilirubin 0.6 mg/dL (0.2-1.0) Direct Bilirubin 0.2 mg/dL (0.0-0.2) Aspartate Amino Transf (AST/SGOT) 43 U/L (15-37) Alanine Aminotransferase (ALT/SGPT) 81 U/L (16-63) Alkaline Phosphatase 74 U/L (46-116) Total Protein 6.9 g/dL (6.4-8.2) Albumin 3.4 g/dL (3.4-5.0) Problem List s/p lap caron Ok to DC FU 2 weeks Problems: ELENI SHIELDS MD 05/19/17 1152: SURGICAL PROGRESS NOTE Assessment/Plan Agree with D/C and Kaur's assessment and plan. Problems: JUAREZ GAN APRN May 19, 2017 09:24 ELENI SHIELDS MD May 19, 2017 11:52
[2017-05-19] MEDS: NICOTINE 21MG PATCH. TD SCH (09:36)
[2017-05-19] MEDS ORDERED: OXYC1TAB7 PO (09:44)
--- NOTE | 2017-05-19 12:03 | PDOC3 ---
Discharge Summary [facility] Date of Admission: May 17, 2017 Discharge Date: May 19, 2017 Admitting Diagnosis 1. SYmptomatic cholelithiasis s/p lap cholecystectomy 05/18 2. Recovered alcoholic 3. SMoker 4. GERD, Depression NOS Problems: CONSULTS sx Procedures lap caron Brief Hospital Course Mr. Maya is a 46 old M, pretty healthy, comes for RUQ pain, was found cholelithiasis. pt underwent lap cholecystectomy on 05/18, has flatus, no BM, eats ok. dc home dc time 35min General: Alert, Oriented X3, Cooperative, No acute distress Heart: Regular rate, Normal S1, Normal S2 Lungs: Clear Abdomen: Normal bowel sounds, Soft, Other (no guarding mild tendereness RUQ) Extremities: No clubbing, No cyanosis, No edema, Normal pulses, No tenderness/ swelling Skin: No rashes, No breakdown, No significant lesion Problems: Disposition home CONDITION AT DISCHARGE: Improved Diet regular Scheduled Nicotine (NICODERM CQ 21mg), 1 PATCH TD DAILY, (Reported) Pantoprazole Sodium (Protonix Iv), 40 MG IV DAILYAC, (Reported) Scheduled PRN Nitroglycerin (NITROGLYCERIN SubLingual), 0.4 MG SL PRN Q5MIN PRN for CHEST PAIN , (Reported) Oxycodone Hcl/Acetaminophen (Oxycodone-Acetaminophen 5-325), 1 TAB PO PRN Q4HRS PRN for PAIN Miscellaneous Medications Acetaminophen (Tylenol), 650 MG PO, (Reported) Nicotine Polacrilex (Nicotine Gum), 2 MG BC, (Reported) Ondansetron Hcl (Zofran), 2 MG IV, (Reported) Ringers Solution,Lactated (Lactated Ringers), 1,000 ML IV, (Reported) Follow Up sx in [address] MD May 19, 2017 12:03
--- NOTE | 2017-05-20 13:56 | PATHOLOGY ---
PATHOLOGY REPORT * * * * * * * * FINAL DIAGNOSIS: Gallbladder, laparoscopic cholecystectomy: - Cholelithiasis. - Acute hemorrhagic and chronic cholecystitis. COMMENT: There is no evidence of malignancy. (JPM:; 05/20/2017) REPORT ELECTRONICALLY SIGNED BY: Sujit Joyce M.D. DATE/TIME: 05/20/2017 13:55 * * * * * * * * GROSS PATHOLOGY: The specimen is received in formalin, labeled "Nika Drew, gallbladder and contents" and consists of an intact gallbladder measuring 9.0 x 3.7 x 3.6 cm. The margin is inked black. The serosa is glistening, smooth to roughened, wang, almanza, and hemorrhagic. Sectioning reveals 2 cc of tenacious clear bile within lumen along with a few moruloid calculi ranging in size from 0.3 cm-0.6 cm. The wall ranges in thickness from 0.3 cm-0.6 cm. The mucosa is markedly roughened and maroon. Departure Clerk sections are submitted as A1. (CHERYLE; 05/19/2017) INITIAL CPT CODE(S): A; 81601 Professional services performed by [facility] [place] [address] Technical services performed by [facility] at [address] [place] [address], [facility] [address], [place] [address]. Azul Martinez, fax: SPECIMEN(S) RECEIVED: A.Gallbladder and contents CLINICAL HISTORY: Symptomatic cholelithiasis PATIENT: NIKA DREW /AGE: 209/23/1970 (Age: 46) PATIENT #: [id number] ALT CASE #: SPECIMEN COLLECTION DATE: 05/18/2017 SPECIMEN RECEIVED DATE: 05/19/2017 [facility] - [id number] [address] - PHONE: [phone] * * * END OF REPORT * * *
== END 2017-05-19 12:00 | disposition home or self-care (01) | DRG 419 ==
LOC: 4 NORTH 12:05
PROVIDERS: ADMIT Internal Medicine; ATTEND Internal Medicine
PROC: 0FT44ZZ Resection of Gallbladder, Percutaneous Endoscopic Approach (ICD-10-PCS; principal; 2017-05-18 15:00)
DX: K80.10 Calculus of gallbladder with chronic cholecystitis without obstruction (principal); F32.9 Major depressive disorder, single episode, unspecified; F10.21 Alcohol dependence, in remission; F17.210 Nicotine dependence, cigarettes, uncomplicated; K21.9 Gastro-esophageal reflux disease without esophagitis; Z82.49 Family history of ischemic heart disease and other diseases of the circulatory system
CPT/HCPCS: 36415; 80048; 80053; 80076; 85025; 85610; 88304; J0330; J0690; J1100; J2270; J2405; J2704; J2710; J3010; J3490; J7030; J7120; Q9967